=== PATIENT | female | born 1945 | race Caucasian/White ===

== ENCOUNTER 2017-07-13 07:52 | Observation (INO) | payer MEDICARE, BC ==
[2017-07-12 12:24] VITALS: BP 124/76
[2017-07-12 12:34] LABS: INTERNATIONAL NORMALIZED RATIO 0.98 (0.93-1.1); PROTHROMBIN TIME 10.2 Seconds (9.6-11.5)
[2017-07-12 12:37] LABS: BASOPHILS # (AUTO) 0.02 x10^3/uL (0-0.1); BASOPHILS % (AUTO) 0 % (0-1); EOSINOPHILS # (AUTO) 0.05 x10^3/uL (0-0.4); EOSINOPHILS % (AUTO) 1 % (1-7); LYMPHOCYTES # (AUTO) 1.86 x10^3/uL (1-3.4); LYMPHOCYTES % (AUTO) 29 % (22-44); MD NO; MEAN CORPUSCULAR HEMOGLOBIN 32.7 pg (27.0-34.8); MEAN CORPUSCULAR HGB CONC 33.6 g/dL (32.4-35.8); MEAN CORPUSCULAR VOLUME 97.4 fL (80-100); MEAN PLATELET VOLUME 8.1 fL (7.4-10.4); MONOCYTES # (AUTO) 0.56 x10^3/uL (0.2-0.8); MONOCYTES % (AUTO) 9 % (2-9); NEUTROPHILS # (AUTO) 3.85 x10^3/uL (1.8-6.8); NEUTROPHILS % (AUTO) 61 % (42-75); PLATELET COUNT 234 x10^3/uL (130-400); RED BLOOD COUNT 4.31 x10^6/uL (3.82-5.3); RED CELL DISTRIBUTION WIDTH 12.8 % (9.6-15.2)
[2017-07-12 12:39] LABS: ALANINE AMINOTRANSFERASE 34 U/L (12-78); ALBUMIN 4.1 g/dL (3.4-5.0); ANION GAP 8 mmol/L (5-15); CALCIUM 8.8 mg/dL (8.5-10.1); CHLORIDE 108 mmol/L (98-107)
[2017-07-12 12:41] LABS: ALKALINE PHOSPHATASE 69 U/L (45-117); BILIRUBIN,TOTAL 0.6 mg/dL (0.2-1.0); CREATININE 0.98 mg/dL (0.55-1.02); TOTAL PROTEIN 7.4 g/dL (6.4-8.2)
[~2017-07-13] VITALS: Ht 162.6 cm; Wt 66.6 kg
[~2017-07-13 07:52] MED LIST: LOSA25TA5 PO; SPIR25TA3 PO; ZOLP-413 PO
[2017-07-13] MEDS ORDERED: MIDAZOLAM 1 MG/ML, 2ML ONE (11:02)
[2017-07-13] MEDS ORDERED: FENTANYL PF 100 MCG/2ML ONE (11:02)
[2017-07-13] MEDS ORDERED: DEXAMETHASONE 4 MG/ML, 1ML ONE ×2 (11:17)
[2017-07-13] MEDS ORDERED: PROPOFOL 10 MG/ML, 50ML ONE (11:17)
[2017-07-13] MEDS ORDERED: CEFAZOLIN 1,000 MG ONE ×2 (11:17)
[2017-07-13] MEDS ORDERED: LIDOCAINE 2%, 20ML ONE (11:17)
[2017-07-13] MEDS ORDERED: EPINEPHRINE 1 MG/ML, 1ML ONE (11:17)
[2017-07-13] MEDS ORDERED: ONDANSETRON 2MG/ML, 2ML ONE (11:17)
[2017-07-13] MEDS ORDERED: VASOPRESSIN 20 UNIT/ML, 1ML ONE (11:17)
[2017-07-13] MEDS ORDERED: ZOLPIDEM 5MG TABLET PO PRN (13:30)
[2017-07-13] MEDS ORDERED: HYDROcodone/APAP 5/325 TABLET PO PRN (13:30)
[2017-07-13] MEDS ORDERED: ONDANSETRON 2MG/ML, 2ML IVPush PRN (13:30)
[2017-07-13] MEDS ORDERED: ACETAMINOPHEN 325 MG TABLET PO PRN ×2 (13:30)
[2017-07-13] MEDS ORDERED: HYDROmorphone 1 MG/ML, 1ML IV PRN (13:30)
[2017-07-13] MEDS ORDERED: ALBUTEROL SULFATE 2.5 MG/3 ML NPPB PRN (13:30)
[2017-07-13] MEDS ORDERED: ONDANSETRON 2MG/ML, 2ML IV PRN (13:30)
[2017-07-13] MEDS ORDERED: MEPERIDINE/PF 25MG/0.5ML IVPush PRN (13:30)
[2017-07-13] MEDS ORDERED: BISACODYL 5 MG EC TABLET PO PRN (13:30)
[2017-07-13] MEDS ORDERED: hydrALAzine 20 MG/ML, 1ML IV PRN (13:30)
[2017-07-13] MEDS ORDERED: LABETALOL 5MG/ML, 20ML IV PRN (13:30)
[2017-07-13] MEDS ORDERED: MIDAZOLAM 1 MG/ML, 2ML IV PRN (13:30)
[2017-07-13] MEDS ORDERED: OXYcodone 5 MG/5 ML ORAL.SOL UDC PO PRN (13:30)
[2017-07-13] MEDS ORDERED: PROMETHAZINE 25 MG/ML, 1ML IV PRN (13:30)
[2017-07-13] MEDS ORDERED: FENTANYL PF 100 MCG/2ML IV PRN (13:30)
[2017-07-13 14:30] VITALS: BP 111/68
[2017-07-13] MEDS: CARVEDILOL 3.125 MG TABLET PO SCH (18:22)
[2017-07-13 19:11] VITALS: BP 117/65
[2017-07-13] MEDS: CEFAZOLIN PMX 1GM/50ML 50 ML IVPB SCH (20:39)
[2017-07-13] MEDS: SODIUM CHLORIDE FLUSH 10ML SYR IVF SCH (20:39)
[2017-07-14 00:41] VITALS: BP 96/56
[2017-07-14] MEDS: CEFAZOLIN PMX 1GM/50ML 50 ML IVPB SCH (04:50)
[2017-07-14 07:25] VITALS: BP 104/63
[2017-07-14] MEDS: CARVEDILOL 3.125 MG TABLET PO SCH (08:39)
[2017-07-14] MEDS: SODIUM CHLORIDE FLUSH 10ML SYR IVF SCH (08:39)
[2017-07-14] MEDS ORDERED: LOSARTAN 25MG TABLET PO SCH (09:00)
[2017-07-14] MEDS ORDERED: SPIRONOLACTONE 25 MG TABLET PO SCH (09:00)
[2017-07-14] MEDS ORDERED: CARV3.1212 PO (09:41)
[2017-07-14] MEDS ORDERED: ACET325T14 PO (09:41)
== END 2017-07-14 13:00 | disposition home or self-care (01) ==
LOC: CACL 07:52 → ORIP 13:01 → 5SO 14:35 → DCLOUNGE 07-14 12:41
PROVIDERS: ADMIT Internal Medicine Cardiovascular Disease; ATTEND Internal Medicine Cardiovascular Disease
DX: I42.9 Cardiomyopathy, unspecified (principal); I44.7 Left bundle-branch block, unspecified; I50.9 Heart failure, unspecified; I49.01 Ventricular fibrillation
CPT/HCPCS: 33225; 33249; 36415; 71045; 71046; 80053; 85025; 85610; 93640; 96365; 96375; C1769; C1779; C1882; C1887; C1892; C1895; C1900; G0378; J0171; J0690; J1100; J2250; J2405; J2704; J3010; J3490; Q9967

== ENCOUNTER → 2020-09-23 | Outpatient (CLI) | payer MEDICARE, BC ==
[~2020-09-23] MED LIST changes: +ACET325T14 PO; +CARV3.1212 PO; +LOSA25TA25 PO; -LOSA25TA5 PO; -SPIR25TA3 PO; +SPIR25TA5 PO
== END | disposition home or self-care (01) ==
LOC: CFH 12:16
PROVIDERS: ATTEND Internal Medicine Cardiovascular Disease
DX: I08.1 Rheumatic disorders of both mitral and tricuspid valves (principal); I42.9 Cardiomyopathy, unspecified
CPT/HCPCS: 93306

== ENCOUNTER 2021-02-11 09:41 | Outpatient (CLI) | payer MEDICARE, BC ==
[2021-02-11] MEDS ORDERED: SPIR25TA5 PO (10:30)
[2021-02-11] MEDS ORDERED: CARV12.52 PO (10:30)
[2021-02-11] MEDS ORDERED: SULF5DRO4 LEFTEYE (10:30)
[2021-02-11] MEDS ORDERED: MELO15TA24 PO (10:30)
[2021-02-11] MEDS ORDERED: IBUP-1223 PO (10:30)
[2021-02-11] MEDS ORDERED: OMEP20TA62 PO (10:30)
[2021-02-11] MEDS ORDERED: iron PO (10:30)
[2021-02-11] MEDS ORDERED: ATOR20TA37 PO (10:30)
[2021-02-11 10:36] LABS: CHLORIDE 107 mmol/L (98-107)
[2021-02-11 10:47] LABS: ALANINE AMINOTRANSFERASE 44 U/L (12-78); ALBUMIN 4.2 g/dL (3.4-5.0); ANION GAP 7 mmol/L (5-15); CALCIUM 9.2 mg/dL (8.5-10.1)
[2021-02-11 11:04] LABS: CREATININE 1.07 mg/dL (0.55-1.02)
[2021-02-11 11:06] LABS: ALKALINE PHOSPHATASE 64 U/L (45-117); BILIRUBIN,TOTAL 0.7 mg/dL (0.2-1.0); TOTAL PROTEIN 7.5 g/dL (6.4-8.2)
== END 2021-02-11 23:59 | disposition home or self-care (01) ==
LOC: STAR 09:41
PROVIDERS: ATTEND Internal Medicine
DX: Z01.818 Encounter for other preprocedural examination (principal); K21.9 Gastro-esophageal reflux disease without esophagitis; Z95.810 Presence of automatic (implantable) cardiac defibrillator; Z85.038 Personal history of other malignant neoplasm of large intestine
CPT/HCPCS: 36415; 80053; 93005

== ENCOUNTER 2021-02-19 05:26 | Day surgery (SDC) | payer MEDICARE, BC ==
[~2021-02-19] VITALS: Ht 162.6 cm; Wt 65.6 kg
[~2021-02-19 05:26] MED LIST changes: +ATOR20TA37 PO; +CARV12.52 PO; +IBUP-1223 PO; +MELO15TA24 PO; +OMEP20TA62 PO; +SULF5DRO4 LEFTEYE; +iron PO
[2021-02-19] MEDS ORDERED: CHLORHEXIDINE 15 ML UDC PO ONE (06:00)
[2021-02-19] MEDS ORDERED: LACTATED RINGERS 1,000 ML IV SCH (06:00)
[2021-02-19 06:05] VITALS: BP 156/83
[2021-02-19] MEDS ORDERED: PROPOFOL 50 ML ONE (07:27)
[2021-02-19] MEDS ORDERED: ONDANSETRON 2MG/ML, 2ML IVPush PRN (08:30)
[2021-02-19] MEDS ORDERED: FENTANYL PF 100 MCG/2ML IV PRN (08:30)
== END 2021-02-19 09:50 | disposition home or self-care (01) ==
LOC: OUT 05:26
PROVIDERS: ATTEND Internal Medicine
DX: Z12.11 Encounter for screening for malignant neoplasm of colon (principal); K21.00 Gastro-esophageal reflux disease with esophagitis, without bleeding; K57.30 Diverticulosis of large intestine without perforation or abscess without bleeding; K44.9 Diaphragmatic hernia without obstruction or gangrene; K64.0 First degree hemorrhoids; I11.0 Hypertensive heart disease with heart failure; I50.9 Heart failure, unspecified; E78.5 Hyperlipidemia, unspecified; Z87.891 Personal history of nicotine dependence; Z88.8 Allergy status to other drugs, medicaments and biological substances; Z91.040 Latex allergy status; Z95.0 Presence of cardiac pacemaker; Z80.0 Family history of malignant neoplasm of digestive organs
CPT/HCPCS: 43239; 88305; G0105; J2704; J7120